=== PATIENT | male | born 1955 | race Caucasian/White ===

== ENCOUNTER 2016-10-28 12:28 | Outpatient (CLI) | payer OTHER ==
[2016-10-28 13:05] LABS: #Basophils 0.2 thou/uL (0.0-0.2); #Eosinphils 0.7 thou/uL (0.0-0.7); #Lymphocytes 5.1 thou/uL (1.20-3.40); #Neutrophils 6.9 thou/uL (1.40-6.50); %Basophils 1.4 % (0.0-1.0); %Eosinophils 4.8 % (0.0-10.0); %Lymphocytes 36.7 % (21.0-51.0); %Monocytes 7.1 % (0.0-10.0); Mean Platelet Volume 8.6 fL (7.4-10.4); Red Blood Cell (RBC) Count 6.14 mill/uL (4.70-6.10); White Blood Cell (WBC) Count 13.9 thou/uL (4.8-10.8)
[2016-10-28 13:34] LABS: Anion Gap 20 mmol/L (10-20); BUN (Urea Nitrogen) 10 mg/dL (8.4-25.7); Calc. Creatinine Clearance 0 mL/min (70-130); Calcium 9.8 mg/dL (7.8-10.44); Carbon Dioxide 21 mmol/L (23-31); Chloride 104 mmol/L (98-107); Estimated GFR-MDRD 89; LDL Cholesterol, Calculated 37 mg/dL
[2016-10-28 13:41] LABS: Hemoglobin A1c 7.7 % (4.0-6.0)
== END 2016-10-28 12:29 | disposition home or self-care (01) ==
LOC: NAVSJIPCSP 12:28 → NAV LAB 12:29
PROVIDERS: ATTEND Internal Medicine
DX: E11.65 Type 2 diabetes mellitus with hyperglycemia (principal); E78.5 Hyperlipidemia, unspecified; I11.9 Hypertensive heart disease without heart failure; Z79.899 Other long term (current) drug therapy
CPT/HCPCS: 80048; 80061; 83036; 85025

== ENCOUNTER 2017-03-30 10:20 | Outpatient (CLI) | payer OTHER ==
[2017-03-30 12:28] LABS: #Basophils 0.2 thou/uL (0.0-0.2); #Eosinphils 0.6 thou/uL (0.0-0.7); #Neutrophils 8.9 thou/uL (1.40-6.50); %Basophils 1.4 % (0.0-1.0); %Lymphocytes 31.5 % (21.0-51.0); %Monocytes 6.4 % (0.0-10.0); %Neutrophils 56.7 % (42.0-75.0); Hemoglobin 18.4 g/dL (14.0-18.0); Mean Corpuscular HGB CONC 34.1 g/dL (32.0-36.0); Mean Corpuscular Hemoglobin 32.8 pg (27.0-31.0); Mean Corpuscular Volume 96.3 fl (80.0-94.0); Mean Platelet Volume 8.8 fL (7.4-10.4); Platelet Count 254 thou/uL (130-400); RBC Distribution Width 12.7 % (11.5-14.5); White Blood Cell (WBC) Count 15.7 thou/uL (4.8-10.8)
[2017-03-30 12:58] LABS: Cardiac Risk 4.4 (Less than 4.5); Cholesterol 123 mg/dl (< 200 Desired); HDL Cholesterol 28 mg/dL (>60 Neg Risk); Triglycerides 550 mg/dL (Less than 150)
[2017-03-30 13:31] LABS: Hemoglobin A1c 8.3 % (4.0-6.0)
== END 2017-03-30 10:21 ==
LOC: NAVSJIPCSP 10:20
PROVIDERS: ATTEND Internal Medicine
DX: E78.5 Hyperlipidemia, unspecified (principal); E11.65 Type 2 diabetes mellitus with hyperglycemia; Z79.899 Other long term (current) drug therapy
CPT/HCPCS: 36415; 80061; 83036; 85025